=== PATIENT | male | born 1950 | race Hispanic/Latino ===

== ENCOUNTER → 2022-10-14 | Outpatient (CLI) | payer OTHER ==
[~2022-10-14] MED LIST: GADOTERATE MEGLUMINE 10 MMOL/20 ML VIAL IV ONE
== END | disposition home or self-care (01) ==
LOC: RAH 13:39
PROVIDERS: ATTEND Surgery
DX: M19.011 Primary osteoarthritis, right shoulder (principal); R22.31 Localized swelling, mass and lump, right upper limb; D17.21 Benign lipomatous neoplasm of skin and subcutaneous tissue of right arm; D17.23 Benign lipomatous neoplasm of skin and subcutaneous tissue of right leg
CPT/HCPCS: 73223; A9575